=== PATIENT | female | born 1990 | race Asian ===

== ENCOUNTER 2018-05-21 00:27 | Emergency (ER) | payer OTHER ==
[~2018-05-21] VITALS: Ht 165.1 cm; Wt 113.4 kg
[~2018-05-21 00:27] MED LIST: AMLO2.5T PO; LISI20TA24 PO; PHEN100C15 PO
[2018-05-21 02:05] VITALS: BP 129/91; TEMP 98.2
== END 2018-05-21 02:05 | disposition home or self-care (01) ==
LOC: ED 00:27
DX: A08.4 Viral intestinal infection, unspecified (principal)
CPT/HCPCS: 96372; 99282; J2405

== ENCOUNTER 2018-09-02 14:18 | Emergency (ER) | payer OTHER ==
[~2018-09-02] VITALS: Ht 165.1 cm; Wt 113.4 kg
[2018-09-02 14:23] VITALS: TEMP 97.7
[2018-09-02 14:35] LABS: PLATELET COUNT 289 K/uL (152-353)
[2018-09-02 14:45] LABS: POTASSIUM 3.4 mmol/L (3.6-5.2)
[2018-09-02 15:35] VITALS: BP 107/66
== END 2018-09-02 15:46 | disposition home or self-care (01) ==
LOC: ED 14:18
PROVIDERS: Family Medicine
DX: G40.802 Other epilepsy, not intractable, without status epilepticus (principal)
CPT/HCPCS: 36415; 80053; 83735; 85027; 96374; 99284

== ENCOUNTER 2018-09-30 12:48 | Emergency (ER) | payer OTHER | END 2018-09-30 13:18 | disposition home or self-care (01) | LOC: ED 12:48 | DX: G40.909 Epilepsy, unspecified, not intractable, without status epilepticus (principal) | CPT/HCPCS: 99281 ==

== ENCOUNTER 2018-10-20 14:50 | Outpatient (CLI) | payer OTHER ==
[2018-10-20 15:19] LABS: POTASSIUM 3.6 mmol/L (3.6-5.2)
[2018-10-20 15:31] LABS: PLATELET COUNT 260 K/uL (152-353)
== END 2018-10-20 22:19 | disposition home or self-care (01) ==
LOC: LABW 14:50
PROVIDERS: Nurse Practitioner Family
DX: R56.9 Unspecified convulsions (principal)
CPT/HCPCS: 36415; 80053; 81000; 85027

== ENCOUNTER 2019-08-23 11:35 | Outpatient (CLI) | payer OTHER | END 2019-08-23 21:52 | disposition home or self-care (01) | LOC: US 11:35 | DX: N63.10 Unspecified lump in the right breast, unspecified quadrant (principal); N63.14 Unspecified lump in the right breast, lower inner quadrant | CPT/HCPCS: G0279 ==

== ENCOUNTER 2019-08-28 23:06 | Emergency (ER) | payer OTHER ==
[~2019-08-28] VITALS: Ht 167.6 cm; Wt 113.4 kg
[2019-08-28] MEDS ORDERED: LAMICTAL200 MG PO (23:21)
[2019-08-28 23:48] LABS: PLATELET COUNT 225 K/uL (152-353)
[2019-08-29 00:28] LABS: POTASSIUM 3.2 mmol/L (3.6-5.2)
[2019-08-29 01:04] VITALS: BP 110/76; TEMP 99.1
== END 2019-08-29 01:04 | disposition home or self-care (01) ==
LOC: ED 23:06
PROVIDERS: Emergency Medicine Emergency Medical Services
DX: U07.1 COVID-19 (principal); B33.8 Other specified viral diseases
CPT/HCPCS: 36415; 80053; 81000; 81025; 85027; 87635; 96360; 96372; 96375; 99284; J1885; U00003

== ENCOUNTER 2019-09-06 15:18 | Outpatient (CLI) | payer OTHER ==
[~2019-09-06 15:18] MED LIST changes: +LAMICTAL200 MG PO
== END 2019-09-06 20:11 | disposition home or self-care (01) ==
LOC: RAD 15:18
PROVIDERS: ATTEND Nurse Practitioner Family
DX: U07.1 COVID-19 (principal)

== ENCOUNTER 2019-10-28 13:56 | Emergency (ER) | payer OTHER ==
[~2019-10-28] VITALS: Ht 167.6 cm; Wt 113.4 kg
[2019-10-28 14:36] LABS: PLATELET COUNT 184 K/uL (152-353)
[2019-10-28 14:45] LABS: POTASSIUM 3.9 mmol/L (3.6-5.2); SODIUM 139 mmol/L (136-145)
[2019-10-28 17:14] VITALS: BP 106/76; TEMP 99.1
== END 2019-10-28 17:14 | disposition home or self-care (01) ==
LOC: ED 13:56
PROVIDERS: Family Medicine
DX: R56.9 Unspecified convulsions (principal)
CPT/HCPCS: 36415; 80053; 80185; 81000; 81025; 82542; 85027; 96374; 99283; 99284

== ENCOUNTER 2019-11-08 14:03 | Emergency (ER) | payer OTHER ==
[~2019-11-08] VITALS: Ht 167.6 cm; Wt 113.4 kg
[2019-11-08 14:14] VITALS: TEMP 98.3
[2019-11-08 15:05] LABS: PLATELET COUNT 197 K/uL (152-353)
[2019-11-08 15:09] LABS: POTASSIUM 3.8 mmol/L (3.6-5.2); SODIUM 139 mmol/L (136-145)
[2019-11-08 15:11] LABS: PARTIAL THROMBOPLASTIN TIME 23.3 SECONDS (24.5-33.6)
[2019-11-08 19:01] VITALS: BP 118/72
== END 2019-11-08 19:01 | disposition home or self-care (01) ==
LOC: ED 14:03
PROVIDERS: Hospitalist
DX: R56.9 Unspecified convulsions (principal); G44.209 Tension-type headache, unspecified, not intractable
CPT/HCPCS: 36415; 80053; 80307; 80320; 81000; 81025; 82550; 83880; 84484; 85027; 85610; 85730; 93005; 96360; 96375; 99284; J1885; J2405

== ENCOUNTER 2019-11-16 05:22 | Emergency (ER) | payer OTHER ==
[~2019-11-16] VITALS: Ht 167.6 cm; Wt 113.4 kg
[2019-11-16 05:25] VITALS: TEMP 99.8
[2019-11-16 05:34] LABS: PLATELET COUNT 242 K/uL (152-353)
[2019-11-16 05:44] LABS: POTASSIUM 3.1 mmol/L (3.6-5.2); SODIUM 141 mmol/L (136-145)
[2019-11-16 05:49] LABS: PARTIAL THROMBOPLASTIN TIME 30.6 SECONDS (24.5-33.6)
[2019-11-16 07:44] VITALS: BP 134/84
== END 2019-11-16 07:44 | disposition home or self-care (01) ==
LOC: ED 05:22
PROVIDERS: Hospitalist
DX: R56.9 Unspecified convulsions (principal); E87.6 Hypokalemia
CPT/HCPCS: 36415; 80053; 80307; 80320; 81000; 81025; 82550; 82962; 83880; 84484; 85027; 85610; 85730; 93005; 96365; 96366; 96375; 99284; J0696; J2060; J7060

== ENCOUNTER 2020-01-25 22:03 | Emergency (ER) | payer OTHER ==
[~2020-01-25] VITALS: Ht 167.6 cm; Wt 117.9 kg
[2020-01-25 22:10] VITALS: BP 126/85; TEMP 99.3
[2020-01-25 22:59] LABS: PLATELET COUNT 283 K/uL (152-353)
[2020-01-25 23:15] LABS: POTASSIUM 3.7 mmol/L (3.6-5.2)
== END 2020-01-26 00:26 | disposition home or self-care (01) ==
LOC: ED 22:03
PROVIDERS: Family Medicine
DX: J06.9 Acute upper respiratory infection, unspecified (principal); R05 Cough; Z20.828 Contact with and (suspected) exposure to other viral communicable diseases
CPT/HCPCS: 36415; 80053; 81000; 82550; 85027; 87502; 87635; 87651; 99283; U0003

== ENCOUNTER 2020-08-21 10:44 | Emergency (ER) | payer OTHER ==
[~2020-08-21] VITALS: Ht 167.6 cm; Wt 117.9 kg
[2020-08-21 11:00] VITALS: TEMP 97.5
[2020-08-21 11:27] LABS: PLATELET COUNT 240 K/uL (152-353)
[2020-08-21 12:03] LABS: POTASSIUM 3.6 mmol/L (3.6-5.2)
[2020-08-21 12:43] VITALS: BP 133/78
== END 2020-08-21 12:43 | disposition home or self-care (01) ==
LOC: ED 10:44
PROVIDERS: Family Medicine
DX: R56.9 Unspecified convulsions (principal)
CPT/HCPCS: 80053; 85027; 99281; 99283

== ENCOUNTER 2021-02-05 08:33 | Emergency (ER) | payer OTHER ==
[~2021-02-05] VITALS: Ht 167.6 cm; Wt 115.7 kg
[2021-02-05 08:40] VITALS: BP 123/81; TEMP 98
[2021-02-05] MEDS ORDERED: TOPAMAX25 MG PO (08:52)
== END 2021-02-05 09:14 | disposition home or self-care (01) ==
LOC: ED 08:33
DX: J06.9 Acute upper respiratory infection, unspecified (principal)
CPT/HCPCS: 99282

== ENCOUNTER 2021-05-02 21:23 | Emergency (ER) | payer OTHER ==
[~2021-05-02] VITALS: Ht 167.6 cm; Wt 123.8 kg
[~2021-05-02 21:23] MED LIST changes: +TOPAMAX25 MG PO
[2021-05-02 22:16] LABS: PLATELET COUNT 304 K/uL (152-353)
[2021-05-02 22:18] LABS: POTASSIUM 3.7 mmol/L (3.6-5.2)
[2021-05-02 22:58] VITALS: BP 132/82; TEMP 98.8
== END 2021-05-02 22:58 | disposition home or self-care (01) ==
LOC: ED 21:23
PROVIDERS: Emergency Medicine
DX: K59.09 Other constipation (principal); R14.0 Abdominal distension (gaseous); E66.01 Morbid (severe) obesity due to excess calories
CPT/HCPCS: 80048; 80307; 81000; 81025; 85027; 99283

== ENCOUNTER 2021-06-20 23:35 | Emergency (ER) | payer OTHER ==
[~2021-06-20] VITALS: Ht 167.6 cm; Wt 122.5 kg
[2021-06-21 00:44] LABS: POTASSIUM 3.5 mmol/L (3.6-5.2); SODIUM 140 mmol/L (136-145)
[2021-06-21 00:45] LABS: PLATELET COUNT 277 K/uL (152-353)
[2021-06-21 04:25] VITALS: BP 131/71; TEMP 97.5
== END 2021-06-21 04:30 | disposition home or self-care (01) ==
LOC: ED 23:35
PROVIDERS: Emergency Medicine
DX: K52.89 Other specified noninfective gastroenteritis and colitis (principal); K59.09 Other constipation
CPT/HCPCS: 36415; 80053; 81025; 82150; 83690; 84484; 85027; 93005; 96374; 96375; 99284; J1885; J2405; Q9963

== ENCOUNTER 2021-08-26 08:59 | Outpatient (CLI) | payer OTHER ==
[2021-08-26 09:29] LABS: POTASSIUM 3.5 mmol/L (3.6-5.2)
== END 2021-08-26 18:53 | disposition home or self-care (01) ==
LOC: CT 08:59
PROVIDERS: ATTEND Nurse Practitioner Family
DX: R10.32 Left lower quadrant pain (principal)
CPT/HCPCS: 36415; 80053; 82150; 83690; Q9963

== ENCOUNTER 2021-09-03 10:13 | Outpatient (CLI) | payer OTHER | END 2021-09-03 19:05 | disposition home or self-care (01) | LOC: CT 10:13 | PROVIDERS: ATTEND Nurse Practitioner Primary Care | DX: R91.1 Solitary pulmonary nodule (principal) ==

== ENCOUNTER 2021-12-17 09:00 | Emergency (ER) | payer OTHER ==
[~2021-12-17] VITALS: Ht 167.6 cm; Wt 113.4 kg
[2021-12-17 09:15] VITALS: BP 134/87; TEMP 97
[2021-12-17 10:41] LABS: PLATELET COUNT 323 K/uL (152-353)
[2021-12-17 10:45] LABS: POTASSIUM 3.9 mmol/L (3.6-5.2)
== END 2021-12-17 12:18 | disposition home or self-care (01) ==
LOC: ED 09:00
PROVIDERS: Emergency Medicine
DX: R10.2 Pelvic and perineal pain (principal)
CPT/HCPCS: 80053; 81002; 81025; 85027; 99283